=== PATIENT | male | born 1990 | race Caucasian/White ===

== ENCOUNTER 2020-04-03 06:24 | Emergency (ER) | payer MEDICAID ==
[~2020-04-03] VITALS: Ht 180.3 cm; Wt 129.3 kg
--- NOTE | 2020-04-03 06:51 | NUR ---
PT AAOX4. BIBSELF C/O PAIN UPON URINATION X3 DAYS +WHITE DISCHARGE TODAY. PT PLACED IN BED 9 ON MONITOR AND PULSE OX, AWAITING MD FOR EVAL AND ORDERS.
[2020-04-03] MEDS ORDERED: PHENAZOPYRIDINE HCL 200 MG TABLET ONE (07:08)
[2020-04-03] MEDS ORDERED: KETOROLAC TROMETHAMINE INJ 30 MG/ML VIAL ONE (07:08)
[2020-04-03 07:12] VITALS: BP 141/73
--- NOTE | 2020-04-03 07:12 | NUR ---
Patient discharged to home in stable condition. Written and verbal after care instructions given. Patient verbalizes understanding of instruction and RX. Pt ambulatory with steady gait. vss.
[2020-04-03] MEDS ORDERED: PHENAZOPYRIDINE HCL 200 MG TABLET PO ONE (07:30)
[2020-04-03] MEDS ORDERED: KETOROLAC TROMETHAMINE INJ 30 MG/ML VIAL IM ONE (07:30)
== END 2020-04-03 07:13 | disposition home or self-care (01) ==
LOC: ER 06:30
DX: N34.2 Other urethritis (principal)
CPT/HCPCS: 96372; 99283; J1885

== ENCOUNTER 2021-08-25 07:09 | Emergency (ER) | payer MEDICAID ==
[~2021-08-25] VITALS: Ht 180.3 cm; Wt 122.5 kg
[2021-08-25 07:18] VITALS: BP 140/75
--- NOTE | 2021-08-25 07:40 | NUR ---
PT IN ROOM, IN STABLE CONDITION WITH MD AT BEDSIDE FOR TX.
--- NOTE | 2021-08-25 07:46 | NUR ---
Patient discharged to home in stable condition. Written and verbal after care instructions given. Patient verbalizes understanding of instruction.
== END 2021-08-25 07:50 | disposition home or self-care (01) ==
LOC: ER 07:15
DX: T16.1XXA Foreign body in right ear, initial encounter (principal); X58.XXXA Exposure to other specified factors, initial encounter; Y93.9 Activity, unspecified; Y92.89 Other specified places as the place of occurrence of the external cause; Y99.8 Other external cause status

== ENCOUNTER 2022-05-31 10:40 | Emergency (ER) | payer MEDICAID ==
[~2022-05-31] VITALS: Ht 180.3 cm; Wt 131.5 kg
[2022-05-31] MEDS ORDERED: IBUP-1955 PO (12:19)
[2022-05-31] MEDS ORDERED: SULF1TAB48 PO (12:19)
[2022-05-31] MEDS ORDERED: CEPH500C2 PO (12:19)
[2022-05-31 12:49] VITALS: BP 154/76
== END 2022-05-31 12:50 | disposition home or self-care (01) ==
LOC: ER 10:52
DX: L02.211 Cutaneous abscess of abdominal wall (principal); L03.311 Cellulitis of abdominal wall; Z79.899 Other long term (current) drug therapy